=== PATIENT | female | born 2000 | race Caucasian/White ===

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

== ENCOUNTER 2024-12-29 23:09 | Inpatient (IN) | payer OTHER ==
[2024-12-29] MEDS ORDERED: TERBUTALINE 1 MG/ML VIAL SQ PRN (23:37)
[2024-12-29] MEDS ORDERED: CARBOPROST TROMETHAMINE 250 MCG/ML 1 ML AMP IM PRN (23:37)
[2024-12-29] MEDS ORDERED: miSOPROStoL 200 MCG TAB RECTAL PRN (23:37)
[2024-12-29] MEDS ORDERED: OXYTOCIN 10 UNIT/ML 1 ML VIAL IM PRN (23:37)
[2024-12-29] MEDS ORDERED: TRANEXAMIC 1,000 MG/100ML-NACL 1,000 MG in EMPTY BAG 1 BAG IV PRN (23:37)
[2024-12-29] MEDS ORDERED: LIDOCAINE 0.5% (PF) 5 MG/ML (50 ML SDV) SQ PRN (23:37)
[2024-12-29] MEDS ORDERED: miSOPROStoL 200 MCG TAB PO PRN (23:37)
[2024-12-29] MEDS ORDERED: METHYLERGONOVINE 0.2 MG/ML 1 ML AMP IM PRN (23:37)
[2024-12-29] MEDS: LACTATED RINGERS 1,000 ML IV SCH (23:39)
[2024-12-29 23:51] LABS: Basophils # (A) 0.03 10*3/uL (0.00-0.10); Basophils % (A) 0.2 %; Eosinophils % (A) 0.7 %; HCT 36.3 % (37.2-46.3); HGB 12.8 g/dL (12.0-15.0); Lymphocytes # (A) 3.57 10*3/uL (0.90-5.00); Lymphocytes % (A) 26.1 %; MCH 30.8 pg (27.0-32.0); MCHC 35.3 g/dL (32.0-37.0); MCV 87.3 fL (80.0-97.0); Mean Platelet Volume 10.2 fL (9.5-12.2); Monocytes # (A) 0.82 10*3/uL (0.20-1.00); Neutrophils # (A) 9.09 10*3/uL (1.80-7.70); Neutrophils % (A) 66.5 %; Platelet Count 265 10*3/uL (140-440); RBC 4.16 10*6/uL (4.10-5.20); RDW 13.1 % (11.5-14.5); WBC 13.68 10*3/uL (4.50-10.00)
[2024-12-30] MEDS: OXYTOCIN 30 UNITS/500 ML NS 30 UNIT in SALINE 1 500ML.BAG IV SCH (00:59)
[2024-12-30] MEDS ORDERED: SIMETHICONE 80 MG CHEWABLE PO PRN (01:18)
[2024-12-30] MEDS ORDERED: diphenhydrAMINE 25 MG CAP PO PRN (01:18)
[2024-12-30] MEDS ORDERED: ZOLPIDEM 5 MG TAB PO PRN (01:18)
[2024-12-30] MEDS ORDERED: HYDROCORTISONE 2.5% RECTAL CREAM 30 GM TUBE RECTAL PRN (01:18)
[2024-12-30] MEDS ORDERED: LANOLIN CREAM 1 GM TUBE TOPICAL PRN (01:18)
[2024-12-30] MEDS ORDERED: diphenhydrAMINE 50 MG CAP PO PRN (01:18)
[2024-12-30] MEDS ORDERED: diphenhydrAMINE 50 MG/ML 1 ML VIAL IVP PRN ×2 (01:18)
[2024-12-30] MEDS ORDERED: BENZOCAINE/MENTHOL SPRAY 1 GM/SPRAY AEROSOL TOPICAL PRN (01:18)
--- NOTE | 2024-12-30 01:24 | P.HPOB ---
History of Present Illness H&P Date: 12/30/24 Chief Complaint: 40 and 0/7 weeks, active labor The patient is a 24-year-old 2 para 1-0-0-1 admitted at 40-0/7 weeks as established by a 26-week ultrasound. She is admitted in active labor with all signs reassuring, category 1 heart rate tracing. I aside from very late care, her has been otherwise uncomplicated and group B strep status is negative. Obstetrical history: 2 para 1-0-0-1 with 1 term vaginal delivery without complications. Current statistics are listed in history of present illness. EDC of 12/29/2024 was established by 26-week ultrasound. Laboratory workup demonstrates a blood type of B+ with a negative antibody screen. Rubella status is immune. The remainder of the laboratory workup was within normal limits. 1 hour Glucola was normal and group B strep status is negative. Gynecologic history: Unremarkable with no apparent history of infections to include STDs Review of Systems Review of systems is confined to history of present illness. Past Medical History Past Medical History: Asthma History of Any Multi-Drug Resistant Organisms: MRSA Date of last positivie culture/infection: 2006 MDRO Source:: left arm-spider bite Past Surgical History: Ear Surgery Past Anesthesia/Blood Transfusion Reactions: No Reported Reaction Smoking Status: Vaper - Past Family History Father Family Medical History: No Reported History Medications and Allergies Home Medications Medication Instructions Recorded Confirmed Type Acetaminophen Tab [Tylenol Tab] 1,000 mg PO Q6HR PRN 04/09/20 12/29/24 History Vit No.180/Iron/Folic 1 tab PO DAILY 04/09/20 12/29/24 History [ Plus Tablet] Allergies Allergy/AdvReac Type Severity Reaction Status Date / Time No Known Allergies Allergy Verified 05/31/22 18:12 Exam Intake and Output 12/29/24 12/29/24 12/30/24 14:59 22:59 06:59 Other: Weight 127.006 kg In general, this is a well-developed, mild to moderately obese white female in significant discomfort as she is in active labor and close to delivery. Her heart has a regular rhythm and rate without murmur. Her lungs clear to auscultation bilateral in all bethea. Her abdomen is gravid, nondistended, has normal active bowel sounds, soft, nontender, without any palpable masses aside from the uterine fundus. Her extremities are without any cyanosis, clubbing, or significant edema and are nontender to palpation bilaterally. Digital cervical examination at the time of my arrival demonstrates her cervix to be approximately 9 cm dilated, 80% effaced, the vertex and presentation at -2 station. Artificial rupture of membranes is carried out demonstrating clear fluid. Results Result Diagrams: 12/29/24 23:40 Abnormal Lab Results - Last 24 Hours (Table) 12/29/24 Range/Units 23:40 WBC 13.68 H (4.50-10.00) 10*3/uL Hct 36.3 L (37.2-46.3) % Immature Gran # 0.07 H (0.00-0.04) 10*3/uL Neutrophils # 9.09 H (1.80-7.70) 10*3/uL Assessment and Plan (1) Active labor at term Current Visit: Yes Status: Acute Code(s): [id number] - SNOMED Code(s): 83204606 Plan: Patient is admitted for active management of labor. She has passed the window for epidural analgesia which was otherwise requested. Artificial rupture of membranes has been carried out for clear fluid and expectant management will be practiced with close maternal and surveillance. Normal vaginal delivery is anticipated shortly.
--- NOTE | 2024-12-30 01:26 | P.PROBDLV ---
Vaginal Delivery Note - . Vaginal Delivery Note: Patient is a 24-year-old 2 para 1-0-0-1 admitted at 40-0/7 weeks by 26- week ultrasound with all signs reassuring, category 1 heart rate tracing. Her has been uncomplicated aside from late presentation and group B strep status is negative. On labor and delivery, she underwent artificial rupture of membranes for clear fluid. She within the next 5 minutes began pushing involuntarily with a relatively thick anterior lip. I was able to reduce the anterior lip over the head over the course of several contractions with pushing and then she pushed very quickly to a normal spontaneous vaginal delivery of a viable 8 pound 7 ounce baby boy with Apgars of 6 at 1 minute and 9 at 5 minutes delivered in the right occiput anterior position. There was a loose nuchal cord x 1 which was reduced following delivery of the infant. The placenta was delivered spontaneously, intact, and grossly normal with a grossly normal, centrally inserted three-vessel cord. There were no significant lacerations of the perineum, vagina, or cervix. Estimated blood loss for the case was approximately 150 mL. There were no complications. All sponge, instrument, and needle counts were correct. Both mother and infant are resting comfortably in recovery though the has been taken to the special care nursery for supplemental oxygen support.
[2024-12-30] MEDS ORDERED: OXYTOCIN 30 UNITS/500 ML NS 30 UNIT in SALINE 1 500ML.BAG IV SCH (01:30)
[2024-12-30] MEDS: ACETAMINOPHEN TAB 500 MG TAB PO PRN (02:12)
[2024-12-30] MEDS: IBUPROFEN 800 MG TAB PO PRN (09:14)
[2024-12-30] MEDS: SENNOSIDES-DOCUSATE SODIUM 1 EACH TAB PO SCH (09:14)
[2024-12-31 03:34] VITALS: RESP 16
[2024-12-31 06:05] LABS: Basophils # (A) 0.06 10*3/uL (0.00-0.10); Basophils % (A) 0.4 %; Eosinophils # (A) 0.22 10*3/uL (0.04-0.35); Eosinophils % (A) 1.6 %; HCT 36.1 % (37.2-46.3); HGB 11.8 g/dL (12.0-15.0); Lymphocytes % (A) 31.5 %; MCH 29.6 pg (27.0-32.0); MCHC 32.7 g/dL (32.0-37.0); MCV 90.5 fL (80.0-97.0); Mean Platelet Volume 9.9 fL (9.5-12.2); Monocytes # (A) 0.68 10*3/uL (0.20-1.00); Neutrophils # (A) 8.31 10*3/uL (1.80-7.70); Neutrophils % (A) 60.9 %; Platelet Count 246 10*3/uL (140-440); RBC 3.99 10*6/uL (4.10-5.20); RDW 13.4 % (11.5-14.5); WBC 13.65 10*3/uL (4.50-10.00)
--- NOTE | 2024-12-31 11:32 | P.DS ---
Providers Date of admission: 12/29/24 23:23 Expected date of discharge: 12/31/24 Attending physician: Mariam Martinez Primary care physician: Stated None - Discharge Diagnosis(es) (1) Normal vaginal delivery Current Visit: Yes Status: Acute Hospital Course: Patient presented in active labor. She underwent a normal vaginal delivery. course has been uneventful. She denies nausea, vomiting, chest pain, shortness of breath or calf pain. Patient will be discharged home day #1 in stable condition to follow-up with me in 6 weeks. Plan - Discharge Summary New Discharge Prescriptions: New Ibuprofen [Motrin] 800 mg PO Q8HR PRN #30 tab PRN Reason: Pain No Action Vit No.180/Iron/Folic [ Plus Tablet] 1 tab PO DAILY Acetaminophen Tab [Tylenol Tab] 1,000 mg PO Q6HR PRN PRN Reason: Pain Or Fever > 100.5 Discharge Medication List Acetaminophen Tab [Tylenol Tab] 1,000 mg PO Q6HR PRN 04/09/20 [History] Vit No.180/Iron/Folic [ Plus Tablet] 1 tab PO DAILY 04/09/20 [History] Ibuprofen [Motrin] 800 mg PO Q8HR PRN #30 tab 12/31/24 [Rx] Follow up Appointment(s)/Referral(s): Mariam Martinez DO [Doctor of Osteopathic Medicine] - 02/17/25 1:15 pm Discharge Disposition: HOME SELF-CARE
[2024-12-31 12:00] VITALS: BP 113/73; PULSE 84; TEMP 97.9
== END 2024-12-31 13:15 | disposition home or self-care (01) | DRG 560 ==
LOC: FBPOP 23:09 → 4FBP 23:23
PROVIDERS: ADMIT Obstetrics & Gynecology; ATTEND Obstetrics & Gynecology
PROC: 10E0XZZ Delivery of Products of Conception, External Approach (ICD-10-PCS; principal; 2024-12-29)
PROC: 10907ZC Drainage of Amniotic Fluid, Therapeutic from Products of Conception, Via Natural or Artificial Opening (ICD-10-PCS; 2024-12-29)
DX: O69.81X0 Labor and delivery complicated by cord around neck, without compression, not applicable or unspecified (principal); J45.909 Unspecified asthma, uncomplicated; Z37.0 Single live birth; O99.52 Diseases of the respiratory system complicating childbirth; Z3A.40 40 weeks gestation of pregnancy; Z86.14 Personal history of Methicillin resistant Staphylococcus aureus infection; O26.893 Other specified pregnancy related conditions, third trimester; Z67.40 Type O blood, Rh positive
CPT/HCPCS: 59025; 85025; 86850; 86900; 86901; 99213